=== PATIENT | male | born 1955 | race American Indian/Alaskan Native ===

== ENCOUNTER 2018-08-17 11:41 | Inpatient (IN) | payer BC, OTHER ==
[2018-08-17] MEDS ORDERED: BENADRYL ONE (12:05)
[2018-08-17] MEDS ORDERED: SOLU-Medrol ONE (12:06)
[2018-08-17] MEDS ORDERED: PEPCID IV ONE ×2 (12:06→12:09)
--- NOTE | 2018-08-17 12:08 | Emergency Department Report ---
HPI - General Chief Complaint: Allergic Reaction Time Seen by Provider: 08/17/18 11:53 - HPI HPI: Room 1 The patient is 62-year-old male presenting with a chief complaint of lip swelling. The patient states he takes amlodipine and lisinopril for his hyp ertension. 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 The patient states she then took some hand belt cleaner washed his lip because he thought he may have came into contact with something that caused the swelling. The patient states he drove back to [place] and the swelling has continued to progress. Patient denies tongue or throat swelling. Patient denies shortness of breath. Location: Lower lip Duration: [See above] Quality: Swelling Severity: Moderate Modifying factors: [see above] Context: [see above] Mode of transportation: Unknown ED Past Medical Hx - Past Medical History Hx Hypertension: Yes Hx Diabetes: Yes - Surgical History Additional Surgical History: Herniorrhaphy, hemorrhoidectomy - Family History Family history: no significant - Social History Smoking Status: Former Smoker (none times over 10 years) Substance Use Type: None (denies illicit drug use), Alcohol (occasional) - Medications Home Medications: Home Medications Medication Instructions Recorded Confirmed Last Taken Type amLODIPine 10 mg PO DAILY 08/17/18 08/17/18 Unknown History ED Review of Systems ROS: Stated complaint: SWELLING ON (L) SIDE OF MOUTH Other details as noted in HPI Constitutional: no symptoms reported Eyes: denies: eye pain ENT: other (lip swelling). denies: throat pain Respiratory: denies: shortness of breath Cardiovascular: denies: chest pain Endocrine: no symptoms reported Gastrointestinal: denies: abdominal pain Genitourinary: denies: dysuria Musculoskeletal: denies: back pain Neurological: denies: headache Physical Exam - Physical Exam Physical Exam: GENERAL: The patient is well-developed well-nourished male lying on stretcher with obvious swelling to the left side of the lower lip not appear to be in acute distress. [] HEENT: Normocephalic. Atraumatic. Extraocular motions are intact. Marked edema of the lower left lip. Uvula midline. Tongue within normal limits. Oropharynx clear NECK: Supple. No stridor CHEST/LUNGS: Clear to auscultation. There is no respiratory distress noted. HEART/CARDIOVASCULAR: Regular. There is no tachycardia. There is no gallop rub or murmur. ABDOMEN: Abdomen is soft, nontender. Patient has normal bowel sounds. There is no abdominal distention. SKIN: There is no rash. There is no edema. There is no diaphoresis. NEURO: The patient is awake, alert, and oriented. The patient is cooperative. The patient has normal speech MUSCULOSKELETAL: There is no evidence of acute injury. ED Medical Decision Making - Lab Data Result diagrams: 08/17/18 12:14 08/17/18 12:14 Laboratory Tests 08/17/18 08/17/18 12:14 12:14 WBC 4.5 RBC 4.26 Hgb 13.1 Hct 38.6 MCV 91 MCH 31 MCHC 34 RDW 12.8 L Plt Count 176 Lymph % (Auto) 38.5 H [place] % (Auto) 10.4 H Eos % (Auto) 4.0 Baso % (Auto) 1.1 Lymph # 1.7 [place] # 0.5 Eos # 0.2 Baso # 0.0 Seg Neutrophils % 46.0 Seg Neutrophils # 2.1 Sodium 139 Potassium 4.1 Chloride 103.2 Carbon Dioxide 24 Anion Gap 16 BUN 14 Creatinine 0.8 Estimated GFR > 60 BUN/Creatinine Ratio 18 Glucose 140 H Calcium 8.7 - Differential Diagnosis angioedema Critical care attestation.: If time is entered above; I have spent that time in minutes in the direct care of this critically ill patient, excluding procedure time. ED Disposition Clinical Impression: Angioedema Disposition: OP ADMIT IP TO THIS HOSP Is pt being admited?: Yes Does the pt Need Aspirin: Yes Condition: Fair Time of Disposition: 12:51 (hospitalist notified (Dr Landis))
[2018-08-17] MEDS ORDERED: BENADRYL IV ONE (12:09)
[2018-08-17] MEDS ORDERED: SOLU-Medrol IV ONE (12:09)
[2018-08-17 12:29] LABS: Basophils % (Auto) 1.1 % (0.0-1.8); Eosinophils # (Auto) 0.2 K/mm3 (0.0-0.4); Hematocrit 38.6 % (35.5-45.6); Hemoglobin 13.1 gm/dl (11.8-15.2); Lymphocytes # (Auto) 1.7 K/mm3 (1.2-5.4); Lymphocytes % (Auto) 38.5 % (13.4-35.0); Mean Corpuscular HGB Conc 34 % (32-34); Mean Corpuscular Volume 91 fl (84-94); Monocytes # (Auto) 0.5 K/mm3 (0.0-0.8); Monocytes % (Auto) 10.4 % (0.0-7.3); Platelet Count 176 K/mm3 (140-440); Red Blood Count 4.26 M/mm3 (3.65-5.03); Red Cell Distribution Width 12.8 % (13.2-15.2)
[2018-08-17 12:49] LABS: BUN/Creatinine Ratio 18; Blood Urea Nitrogen 14 mg/dL (9-20); Calcium 8.7 mg/dL (8.4-10.2); Hemolysis Index 18
[2018-08-17] MEDS ORDERED: ZOFRAN IV PRN (14:24)
[2018-08-17] MEDS ORDERED: PROVENTIL IH PRN (14:24)
[2018-08-17] MEDS ORDERED: TYLENOL PO PRN (14:24)
[2018-08-17] MEDS ORDERED: SODIUM CHLORIDE FLUSH SYRINGE 10 ML IV PRN (14:24)
--- NOTE | 2018-08-17 14:24 | History and Physical Report ---
History of Present Illness Chief complaint: Cant hardly talk History of present illness: 62 YO Male with Obesity, HTN, DM presents to ED for evaluation. Pt states that he has experienced facial swelling, and lip swelling that began around 0400hrs with progressively worsening symptoms over the past 3 hours. Pt symptoms prompted him to seek medical attention. Pt transported to [facility] via private vehicle. Pt seen and evaluated in ED and found to have severe angioedema, with swelling to the soft palate. At time of exam, patient acknowledges mild shortness of breath, drooling, and difficulty swallowing solid food. Pt denies fever, chills, CP, Palpitations, NVD. Pt treated with steroid therapy as well as antihistamine therapy. Pt admitted to medical floor. Pt is able to protect his airway. Past History Past Medical History: diabetes, hypertension Past Surgical History: hernia repair, Other (hemmorhoid surgery) Medications and Allergies Allergies Allergy/AdvReac Type Severity Reaction Status Date / Time No Known Allergies Allergy Unverified 08/17/18 11:42 Home Medications Medication Instructions Recorded Confirmed Last Taken Type Diclofenac EC 50 mg PO TID PRN 08/17/18 08/17/18 Unknown History Lisinopril 10 mg PO DAILY 08/17/18 08/17/18 Unknown History amLODIPine 10 mg PO DAILY 08/17/18 08/17/18 Unknown History metFORMIN 500 mg PO BID 08/17/18 08/17/18 Unknown History Review of Systems Constitutional: no weight loss, no weight gain, no fever, no chills Ears, nose, mouth and throat: dysphagia, swelling in mouth, swelling in throat, no ear pain, no ear discharge, no tinnitis, no decreased hearing, no nose pain Cardiovascular: no chest pain, no orthopnea, no palpitations, no rapid/irregular heart beat, no edema Respiratory: no cough, no cough with sputum, no excessive sputum, no hemoptysis Gastrointestinal: no nausea, no vomiting, no diarrhea, no constipation, no change in bowel habits Genitourinary Male: no hematuria, no flank pain, no discharge, no urinary frequency, no urinary hesitancy, no nocturia Rectal: no pain, no incontinence, no bleeding Musculoskeletal: no neck stiffness, no neck pain, no shooting arm pain, no arm numbness/tingling, no low back pain Integumentary: no rash, no pruritis, no redness, no sores, no wounds Neurological: no head injury, no paralysis, no weakness, no parathesias, no tingling Psychiatric: no anxiety, no memory loss, no change in sleep habits, no sleep disturbances, no insomnia, no hypersomnia, no change in libido Endocrine: no cold intolerance, no heat intolerance, no polyphagia, no excessive thirst, no polydipsia, no polyuria, no excessive sweating Hematologic/Lymphatic: lymphedema, no easy bruising Allergic/Immunologic: no urticaria, no allergic rhinitis Exam - Constitutional Vitals: Temp Pulse Resp BP Pulse Ox 97 F L 87 16 153/80 98 08/17/18 12:08 08/17/18 12:08 08/17/18 12:08 08/17/18 12:08 08/17/18 12:08 General appearance: Present: mild distress - EENT Eyes: Present: PERRL ENT: hearing intact, clear oral mucosa, other (Edema to Lip, oral pharynx, soft palate, +drooling, ) - Neck Neck: Present: supple, normal ROM - Respiratory Respiratory effort: normal Respiratory: bilateral: CTA - Cardiovascular Heart Sounds: Present: S1 & S2. Absent: rub, click - Extremities Extremities: pulses symmetrical, No edema Peripheral Pulses: within normal limits - Abdominal General gastrointestinal: Present: soft, non-tender, non-distended, normal bowel sounds Male genitourinary: Present: normal - Integumentary Integumentary: Present: clear, warm, dry - Musculoskeletal Musculoskeletal: gait normal, strength equal bilaterally - Psychiatric Psychiatric: appropriate mood/affect, intact judgment & insight - Neurologic Neurologic: CNII-XII intact, moves all extremities Results - Labs CBC & Chem 7: 08/17/18 12:14 08/17/18 12:14 Labs: Abnormal lab results 08/17/18 08/17/18 Range/Units 12:14 12:14 RDW 12.8 L (13.2-15.2) % Lymph % (Auto) 38.5 H (13.4-35.0) % [place] % (Auto) 10.4 H (0.0-7.3) % Glucose 140 H (75-100) mg/dL Assessment and Plan - Patient Problems (1) Angioedema Current Visit: Yes Status: Acute Qualifiers: Encounter type: initial encounter Qualified Code(s): T78.3XXA - Angioneurotic edema, initial encounter Plan to address problem: IV steroid therapy, IV antihistamine therapy, Discontinue lisinopril, monitor bp q shift, (2) HTN (hypertension) Current Visit: Yes Status: Acute Qualifiers: Hypertension type: essential hypertension Qualified Code(s): I10 - Essential (primary) hypertension Plan to address problem: monitor bp q shift, (3) Diabetes Current Visit: Yes Status: Acute Plan to address problem: ADA diet, insulin, accu check (4) DVT (deep venous thrombosis) Current Visit: Yes Status: Acute Plan to address problem: SCD to BLE while in bed.
[2018-08-17] MEDS ORDERED: BENADRYL IV PRN (14:26)
[2018-08-17] MEDS: SOLU-Medrol IV SCH (21:30)
[2018-08-17] MEDS: SODIUM CHLORIDE FLUSH SYRINGE 10 ML IV SCH (21:31)
[2018-08-17] MEDS: HumaLOG SUB-Q SCH (23:05)
[2018-08-18] MEDS: HumaLOG SUB-Q SCH ×3 (08:10→19:28)
[2018-08-18] MEDS: SOLU-Medrol IV SCH ×2 (11:48→21:37)
[2018-08-18] MEDS: SODIUM CHLORIDE FLUSH SYRINGE 10 ML IV SCH ×2 (11:48→21:38)
[2018-08-18] MEDS ORDERED: CHLORASEPTIC MM PRN (16:26)
[2018-08-18] MEDS ORDERED: BENADRYL IV PRN (16:30)
--- NOTE | 2018-08-18 16:31 | Progress Note ---
Assessment and Plan Assessment and plan: 62-year-old obese male patient was admitted with angioedema to lisinopril, lisinopril is held On IV steroids and antihistamines and supportive care --Angioedema probably secondary to lisinopril; Lisinopril is held, IV steroids, IV antihistamines, supportive care Chloraseptic spray or oral cavity, patient has no stridor or shortness of breath --Type 2 diabetes mellitus; Accu-Chek sliding scale coverage and ADA diet Oral hypoglycemics as needed --Hypertension; moderate control, continue current antihypertensives When necessary medications --Obesity; BMI 33.9 Advise weight reduction and medically stable --Full CODE STATUS; Monitor the patient closely and adjust the management as needed Plan of care is reviewed with the patient, his at the bedside and his nurse Possible discharge in 1-2 days if stable I informed the patient and the that he is allergic to lisinopril/HEATHER inhibitor gp Medications Strongly advised not to take these medicines History Interval history: Patient seen and examined this morning medical records reviewed Admitted with angioedema secondary to lisinopril Patient's lip swelling minimally improved Still has swelling of upper and lower lip No stridor no shortness of breath On IV steroids and IV Benadryl Lisinopril held Alert awake oriented 3 Vital signs noted Hospitalist Physical - Constitutional Vitals: Temp Pulse Resp BP Pulse Ox 97.5 F L 71 16 147/85 94 08/18/18 13:01 08/18/18 13:01 08/18/18 13:01 08/18/18 13:01 08/18/18 13:01 General appearance: Present: no acute distress, well-nourished, obese - EENT Eyes: Present: PERRL, EOM intact ENT: other (Swelling of upper and lower lip) - Neck Neck: Present: supple, normal ROM - Respiratory Respiratory effort: normal Respiratory: bilateral: diminished, negative: rales, rhonchi, wheezing - Cardiovascular Rhythm: regular Heart Sounds: Present: S1 & S2 - Extremities Extremities: no ischemia, No edema - Abdominal General gastrointestinal: soft, non-tender, non-distended, normal bowel sounds - Integumentary Integumentary: Present: clear, warm - Psychiatric Psychiatric: appropriate mood/affect, cooperative - Neurologic Neurologic: CNII-XII intact, moves all extremities Results - Labs CBC & Chem 7: 08/17/18 12:14 08/17/18 12:14 Labs: Laboratory Last Values WBC 4.5 K/mm3 (4.5-11.0) 08/17/18 12:14 RBC 4.26 M/mm3 (3.65-5.03) 08/17/18 12:14 Hgb 13.1 gm/dl (11.8-15.2) 08/17/18 12:14 Hct 38.6 % (35.5-45.6) 08/17/18 12:14 MCV 91 fl (84-94) 08/17/18 12:14 MCH 31 pg (28-32) 08/17/18 12:14 MCHC 34 % (32-34) 08/17/18 12:14 RDW 12.8 % (13.2-15.2) L 08/17/18 12:14 Plt Count 176 K/mm3 (140-440) 08/17/18 12:14 Lymph % (Auto) 38.5 % (13.4-35.0) H 08/17/18 12:14 [place] % (Auto) 10.4 % (0.0-7.3) H 08/17/18 12:14 Eos % (Auto) 4.0 % (0.0-4.3) 08/17/18 12:14 Baso % (Auto) 1.1 % (0.0-1.8) 08/17/18 12:14 Lymph # 1.7 K/mm3 (1.2-5.4) 08/17/18 12:14 [place] # 0.5 K/mm3 (0.0-0.8) 08/17/18 12:14 Eos # 0.2 K/mm3 (0.0-0.4) 08/17/18 12:14 Baso # 0.0 K/mm3 (0.0-0.1) 08/17/18 12:14 Seg Neutrophils % 46.0 % (40.0-70.0) 08/17/18 12:14 Seg Neutrophils # 2.1 K/mm3 (1.8-7.7) 08/17/18 12:14 Sodium 139 mmol/L (137-145) 08/17/18 12:14 Potassium 4.1 mmol/L (3.6-5.0) 08/17/18 12:14 Chloride 103.2 mmol/L (98-107) 08/17/18 12:14 Carbon Dioxide 24 mmol/L (22-30) 08/17/18 12:14 Anion Gap 16 mmol/L 08/17/18 12:14 BUN 14 mg/dL (9-20) 08/17/18 12:14 Creatinine 0.8 mg/dL (0.8-1.5) 08/17/18 12:14 Estimated GFR > 60 ml/min 08/17/18 12:14 BUN/Creatinine Ratio 18 % 08/17/18 12:14 Glucose 140 mg/dL (75-100) H 08/17/18 12:14 POC Glucose 171 (70-105) H 08/17/18 21:51 Calcium 8.7 mg/dL (8.4-10.2) 08/17/18 12:14
[2018-08-18] MEDS: GLUCOPHAGE PO SCH (19:28)
[2018-08-18] MEDS ORDERED: NON-FORMULARY (Metformin 500 MG) PO SCH (22:00)
[2018-08-19] MEDS: HumaLOG SUB-Q SCH ×3 (00:01→12:12)
[2018-08-19 07:30] LABS: Basophils % (Auto) 0.1 % (0.0-1.8); Hematocrit 41.1 % (35.5-45.6); Hemoglobin 13.8 gm/dl (11.8-15.2); Lymphocytes # (Auto) 1.4 K/mm3 (1.2-5.4); Lymphocytes % (Auto) 18.4 % (13.4-35.0); Mean Corpuscular HGB Conc 34 % (32-34); Mean Corpuscular Volume 90 fl (84-94); Monocytes # (Auto) 0.5 K/mm3 (0.0-0.8); Platelet Count 215 K/mm3 (140-440); Red Blood Count 4.58 M/mm3 (3.65-5.03); Red Cell Distribution Width 13.3 % (13.2-15.2)
[2018-08-19 07:51] LABS: BUN/Creatinine Ratio 15; Blood Urea Nitrogen 12 mg/dL (9-20); Chol/HDL Ratio 3.48 %; HDL Cholesterol 52 mg/dL (40-59); Hemolysis Index 9; LDL Cholesterol,Direct 118 mg/dL (50-130)
[2018-08-19] MEDS: GLUCOPHAGE PO SCH (08:42)
[2018-08-19] MEDS ORDERED: NON-FORMULARY (Amlodipine 10 MG) PO SCH (10:00)
[2018-08-19] MEDS ORDERED: NORVASC PO SCH (10:00)
[2018-08-19] MEDS: SOLU-Medrol IV SCH (10:35)
[2018-08-19] MEDS: SODIUM CHLORIDE FLUSH SYRINGE 10 ML IV SCH (10:36)
[2018-08-19 11:46] VITALS: BP 148/81
--- NOTE | 2018-08-19 12:22 | Discharge Summary ---
Providers - Providers Date of Admission: 08/17/18 15:28 Date of discharge: 08/19/18 Attending physician: JOY CANO Primary care physician: SAWYER RAMESH Hospitalization Condition: Stable Hospital course: Patient is a 62 yo man with a history of hypertension and type 2 DM who presented to [facility] ED with tongue and throat swelling. He was admitted because he was having difficult swallowing due to Angioedema (lisinopril is held and added to Allergy list), which has resolved. He was treated with IV steroids and antihistamines -Angioedema probably secondary to lisinopril; Lisinopril is held, IV steroids, IV antihistamines, supportive care -Type 2 diabetes mellitus; Accu-Chek sliding scale coverage and ADA diet, Oral hypoglycemics as needed -Hypertension; moderate control, continue current antihypertensives, -Obesity; BMI 33.9, Advise weight reduction and medically stable --Full CODE STATUS; Strongly advised not to take these medicines Disposition: DC-01 TO HOME OR SELFCARE Time spent for discharge: 35 minutes Core Measure Documentation - Palliative Care Palliative Care/ Comfort Measures: Not Applicable - Core Measures Any of the following diagnoses?: none - VTE Discharge Requirements Deep Vein Thrombosis/Pulmonary Embolism Present on Admission: No Has pt received <5 days of overlap therapy or INR<2.0: No Anticoagulant overlap therapy prescribed at discharge: No Contraindication No Overlap Therapy order at DC: Not Indicated Exam - Physical Exam Narrative exam: Gen: WDWN, NAD, Awake, Alert, Orientated HEENT: NCAT, EOMI, PERRL, OP Clear Neck: supple, no adenopathy, no thyromegaly, no JVD CVS/Heart: RRR, normal S1S2, pulses present bilaterally Chest/Lungs: CTA B, Symmetrical chest expansion, good air entry bilaterally GI/Abdomen: soft, NTND, good bowel sounds, no guarding or rebound /Bladder: no suprapubic tenderness, no CVA or paraspinal tenderness Extermity/Skin: no c/c/e, no obvious rash MSK: FROM x 4 Neuro: CN 2-12 grossly intact, no new focal deficits Psych: calm - Constitutional Vitals: Temp Pulse Resp BP Pulse Ox 97.9 F 84 18 148/81 94 08/19/18 11:43 08/19/18 11:43 08/19/18 11:43 08/19/18 11:43 08/19/18 11:43 Plan Activity: other (no strenous activity until cleared by PCP) Diet: low salt Special Instructions: record daily BP diary Additional Instructions: No LISINOPRIL ever Follow up with: PRIMARY CAREMD [Referring] - 7 Days AGATHA GUERRERO MD [Staff Physician] - 7 Days Prescriptions: metFORMIN [Glucophage] 500 mg PO BIDDIAB #60 tablet methylPREDNISolone [Medrol Dose Agus] 1 dose PO DAILY #1 pack amLODIPine [Norvasc] 10 mg PO DAILY #30 tablet
== END 2018-08-19 13:59 | disposition home or self-care (01) | DRG 916 ==
LOC: ED 11:41 → 3A 15:28
PROVIDERS: ADMIT Internal Medicine; ATTEND Internal Medicine
DX: T78.3XXA Angioneurotic edema, initial encounter (principal); I10 Essential (primary) hypertension; E11.9 Type 2 diabetes mellitus without complications; F17.210 Nicotine dependence, cigarettes, uncomplicated; E66.9 Obesity, unspecified; T46.4X5A Adverse effect of angiotensin-converting-enzyme inhibitors, initial encounter; Y92.89 Other specified places as the place of occurrence of the external cause; Z68.33 Body mass index [BMI] 33.0-33.9, adult
CPT/HCPCS: 36415; 80048; 80061; 82962; 83036; 85025; 96374; 96375; G0378; J1200; J1815; J2920; J2930